=== PATIENT | female | born 1990 | race Two or more races ===

== ENCOUNTER 2017-10-12 07:49 | Day surgery (SDC) | payer BC ==
[2017-10-12] MEDS ORDERED: ROCURONIUM 50 MG INJ (08:28)
[2017-10-12] MEDS ORDERED: NEOSTIGMINE 3 MG/3 ML SYRINGE (08:28)
[2017-10-12] MEDS ORDERED: FENTAnyl 50 MCG/ML VIAL (08:28)
[2017-10-12] MEDS ORDERED: ONDANSETRON 4 MG INJ (08:28)
[2017-10-12] MEDS ORDERED: PROPOFOL 20 ML (08:28)
[2017-10-12] MEDS ORDERED: CEFAZOLIN 1 GM INJ (08:28)
[2017-10-12] MEDS ORDERED: MIDAZOLAM 1 MG/ML 2 ML INJ (08:28)
[2017-10-12] MEDS ORDERED: GLYCOPYRROLATE 0.4 MG INJ (08:28)
[2017-10-12] MEDS ORDERED: DEXAMETHASONE 4 MG/ML 1 ML INJ (08:29)
[2017-10-12] MEDS: BUPIVACAINE 0.5% (SDV) 30 ML INJ (10:02)
[2017-10-12] MEDS: POLYMYXIN/BACITRACIN 1L IRRIG (10:02)
[2017-10-12] MEDS ORDERED: KETOROLAC 30 MG INJ (10:27)
[2017-10-12] MEDS ORDERED: SUGAMMADEX SODIUM 200 MG/2 ML VIAL IV (10:27)
[2017-10-12] MEDS ORDERED: MIDAZOLAM 1 MG/ML 2 ML INJ IV (10:30)
[2017-10-12] MEDS ORDERED: FENTAnyl 50 MCG/ML VIAL IV ×3 (10:30)
[2017-10-12] MEDS ORDERED: HYDROmorphONE (0.2 MG/ML) 10ML SYG IV ×3 (10:30)
[2017-10-12] MEDS ORDERED: MEPERIDINE 25 MG INJ IV (10:30)
[2017-10-12] MEDS ORDERED: ALBUTEROL 0.083% (NEB) 2.5 MG/3 ML AMP HHN (10:30)
[2017-10-12] MEDS ORDERED: LABETALOL HCL 20MG INJ IV (10:30)
[2017-10-12] MEDS ORDERED: DIPHENHYDRAMINE 50 MG INJ IV (10:30)
[2017-10-12] MEDS ORDERED: IPRATROPIUM (NEB) 0.5 MG/2.5 ML AMP HHN (10:30)
[2017-10-12] MEDS ORDERED: ONDANSETRON 4 MG INJ IV (10:30)
[2017-10-12] MEDS ORDERED: OXYCODONE/ACETAMINOPHEN (5/325) TAB PO ×2 (10:30)
[2017-10-12] MEDS ORDERED: EPHEDrine SULFATE 50 MG/5 ML SYG IV (10:30)
[2017-10-12] MEDS ORDERED: TRIMETHOBENZAMIDE 100 MG/ML VIAL IM (10:30)
[2017-10-12] MEDS ORDERED: hydrALAzine 20 MG INJ IV (10:30)
== END 2017-10-12 13:30 | disposition home or self-care (01) ==
LOC: SDS 07:49
DX: D16.32 Benign neoplasm of short bones of left lower limb (principal); L90.5 Scar conditions and fibrosis of skin
CPT/HCPCS: 11426; 73630-LT; 88304; 88311

== ENCOUNTER 2017-11-07 11:30 | Emergency (ER) | payer BC | END 2017-11-07 14:55 | disposition home or self-care (01) | LOC: FTE 11:30 | DX: Z48.01 Encounter for change or removal of surgical wound dressing (principal) | CPT/HCPCS: 99281; Z7502 ==

== ENCOUNTER 2018-10-09 11:58 | Emergency (ER) | payer BC ==
[2018-10-09] MEDS: ACYCLOVIR 800 MG TAB PO (15:25)
[2018-10-09] MEDS: ACETAMINOPHEN 500 MG TAB PO (15:26)
== END 2018-10-09 16:02 | disposition home or self-care (01) ==
LOC: FTE 16:02
DX: B02.9 Zoster without complications (principal)
CPT/HCPCS: 99283; Z7502